=== PATIENT | male | born 1990 | race Caucasian/White ===

== ENCOUNTER 2019-09-08 10:45 | Emergency (ER) | payer SELFPAY ==
[~2019-09-08] VITALS: Ht 190.5 cm; Wt 106.6 kg
--- NOTE | 2019-09-08 10:50 | NUR ---
BIB [facility] AND [employer], 27 YEAR OLD MALE C/O LACERATION TO RIGHT HAND. ALERT AND ORIENTED X4 BREATHING EVEN AND UNLABORED WITH NO DISTRESS NOTED. SKIN INTACT. RIGHT HAND NOTED WITH DRY BLOOD. WAITING TO BE SEEN BY
[2019-09-08] MEDS ORDERED: HYDROCODONE/APAP 5/325MG 1 EACH TABLET ONE (11:30)
[2019-09-08] MEDS ORDERED: LORAZEPAM 1 MG TABLET PO ONE (11:30)
[2019-09-08] MEDS ORDERED: TDAP [DIPH/PERTUSSIS/TET] 0.5 ML VIAL IM ONE ×2 (11:30→11:31)
[2019-09-08] MEDS ORDERED: HYDROCODONE/APAP 5/325MG 1 EACH TABLET PO ONE (11:30)
[2019-09-08] MEDS ORDERED: IBUPROFEN 400 MG TABLET PO ONE (11:30)
[2019-09-08] MEDS ORDERED: IBUPROFEN 400 MG TABLET ONE (11:31)
[2019-09-08] MEDS ORDERED: LORAZEPAM 1 MG TABLET ONE (11:31)
[2019-09-08] MEDS ORDERED: LORAZEPAM INJ 2 MG/ML VIAL IM ONE (13:00)
[2019-09-08] MEDS ORDERED: LORAZEPAM INJ 2 MG/ML VIAL ONE (13:00)
--- NOTE | 2019-09-08 15:32 | NUR ---
PATIENT ASLEEP IN STABLE CONDITION. VSS ARE STABLE. NO ACUTE DISTRESS NOTED. FOOD AT BEDSIDE
[2019-09-08 18:27] VITALS: BP 122/71
--- NOTE | 2019-09-08 18:27 | NUR ---
Patient discharged to home in stable condition. Written and verbal after care instructions given. Patient verbalizes understanding of instruction.
== END 2019-09-08 18:28 | disposition home or self-care (01) ==
LOC: EDBD 10:47 → ER 10:47
DX: S61.411A Laceration without foreign body of right hand, initial encounter (principal); S61.412A Laceration without foreign body of left hand, initial encounter; S61.219A Laceration without foreign body of unspecified finger without damage to nail, initial encounter; T40.5X1A Poisoning by cocaine, accidental (unintentional), initial encounter; F19.11 Other psychoactive substance abuse, in remission; F41.9 Anxiety disorder, unspecified; R00.0 Tachycardia, unspecified; F10.10 Alcohol abuse, uncomplicated; F17.200 Nicotine dependence, unspecified, uncomplicated; Y90.9 Presence of alcohol in blood, level not specified; Z60.2 Problems related to living alone; X58.XXXA Exposure to other specified factors, initial encounter; Y93.39 Activity, other involving climbing, rappelling and jumping off; Y92.89 Other specified places as the place of occurrence of the external cause; Y99.8 Other external cause status
CPT/HCPCS: 90471; 90715; 93005 ×2; 96372; 99284; 99406; A6403; J2060